=== PATIENT | male | born 1960 | race Caucasian/White ===

== ENCOUNTER 2016-08-08 12:58 | Emergency (ER) | payer OTHER ==
[~2016-08-08] VITALS: Ht 177.8 cm; Wt 82.0 kg
[~2016-08-08 12:58] MED LIST: APIX5TAB PO
[2016-08-08 13:00] VITALS: BP 138/88; PULSE 80; RESP 12; TEMP 98.2; O2SAT 98
[2016-08-08] MEDS ORDERED: ATOR40TA16 PO ×2 (14:03→14:10)
[2016-08-08] MEDS ORDERED: SERT-129 PO ×2 (14:03→14:10)
[2016-08-08] MEDS ORDERED: VALS1TAB63 PO ×2 (14:03→14:10)
--- NOTE | 2016-08-08 14:08 | PD ---
HPI Chief Complaint: Medication Refill Request Time Seen by Provider: 13:59 Travel History International Travel<30 days: No Contact w/Intl Traveler<30days: No Traveled to known affect area: No History of Present Illness HPI 56-year-old white male presents to emergency department requesting refill of his medications. He states that he just moved to [place] from [place] 2 months ago. He has [place] Medicaid. He states that he is unable to get a primary care doctor to refill his medicines. The patient denies any acute medical complaints. He states that he has been to the ER for medication refills in the past. PFS Past Medical History Narrative Medical Valvular heart disease, hypertension, hypercholesterolemia, depression Hx Anticoagulant Therapy: Yes Cardiovascular Problems: Yes (HTN, HEART SX) Tetanus Vaccination: < 5 Years Past Surgical History Narrative Surgical Mitral valve repair Social History Alcohol Use: Yes Tobacco Use: No Allergies-Medications (Allergen,Severity, Reaction): Coded Allergies: Penicillin (Verified Allergy, Mild, 08/08/16) Reported Meds & Prescriptions Reported Meds & Active Scripts Active Eliquis (Apixaban) 5 Mg Tab 5 Mg PO BID Reported Atorvastatin (Atorvastatin Calcium) 40 Mg Tab 40 Mg PO HS Valsartan 40 Mg Tab 40 Mg PO DAILY Sertraline (Sertraline HCl) 100 Mg Tab 100 Mg PO DAILY Review of Systems Except as stated in HPI: all other systems reviewed are Neg Physical Exam Narrative GENERAL: This is a well-nourished, well-developed patient, in no apparent distress. SKIN: No rashes, ecchymoses or lesions. Warm and dry. HEAD: Atraumatic. Normocephalic. EYES: PERRL, EOMI, no discharge or injection. No scleral icterus. EARS: Clear NOSE: Nasal turbinates appear normal. THROAT: Mucosa pink and moist. Airway patent. NECK: Trachea midline. supple, moves head freely. LUNGS: Clear to auscultation. CV: Regular in rhythm. ABDOMEN: Soft nontender. EXT: No clubbing cyanosis or edema. Data Data Last Documented VS Vital Signs Date Time Temp Pulse Resp B/P Pulse Ox O2 Delivery O2 Flow Rate FiO2 08/08/16 13:00 98.2 80 12 138/88 98 Room Air MDM Medical Decision Making Medical Screen Exam Complete: Yes Emergency Medical Condition: Yes Medical Record Reviewed: Yes Differential Diagnosis Differential diagnosis: Hypertension, hypercholesterolemia, valvular heart disease, med refill Narrative Course I had a lengthy discussion with the patient and I have agreed to give him a 1 month supply of medication. 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 Diagnosis Primary Impression: Valvular heart disease Additional Impressions: Hypertension Qualified Code: I15.9 - Secondary hypertension Hypercholesterolemia Depression Qualified Code: F32.9 - Depression, unspecified depression type Medication refill Patient Instructions: General Instructions Additional Instructions: Rest. Medication refill. Contact Medicaid and continued to work on getting a primary care doctor. Return to the ER if any problems Med/Other Pt SpecificInfo: Prescription(s) given Scripts Atorvastatin 40 Mg Tab40 Mg PO HS #30 TAB Ref 0 Prov:Rey Hankins MD 08/08/16 Valsartan 40 Mg Tab40 Mg PO DAILY #30 TAB Ref 0 Prov:Rey Hankins MD 08/08/16 Sertraline 100 Mg Ibl642 Mg PO DAILY #30 TAB Ref 0 Prov:Rey Hankins MD 08/08/16 Apixaban (Eliquis)5 Mg Tab5 Mg PO BID #60 TAB Ref 0 Prov:Rey Hankins MD 08/08/16 Disposition: 01 DISCHARGE HOME Condition: Stable Connor Grace Aug 08, 2016 14:08
[2016-08-08] MEDS ORDERED: APIX5TAB PO (14:10)
[2017-01-16] MEDS ORDERED: VITA100036 PO (15:41)
[2017-01-16] MEDS ORDERED: FERR150C (15:41)
[2017-01-16] MEDS ORDERED: TAMS0.4C4 PO (16:34)
== END 2016-08-08 14:23 | disposition home or self-care (01) ==
LOC: NEPB 12:58
DX: I38 Endocarditis, valve unspecified (principal); F32.9 Major depressive disorder, single episode, unspecified; I10 Essential (primary) hypertension; Z76.0 Encounter for issue of repeat prescription
CPT/HCPCS: 99281

== ENCOUNTER 2016-10-07 17:01 | Emergency (ER) | payer SELFPAY ==
[~2016-10-07] VITALS: Ht 177.8 cm; Wt 82.0 kg
[~2016-10-07 17:01] MED LIST changes: +ATOR40TA16 PO; +SERT-129 PO; +VALS1TAB63 PO
[2016-10-07 17:03] VITALS: BP 131/83; PULSE 84; RESP 15; TEMP 98.1; O2SAT 95
[2016-10-07] MEDS ORDERED: VALS1TAB63 PO (18:29)
[2016-10-07] MEDS ORDERED: APIX5TAB PO (18:29)
[2016-10-07] MEDS ORDERED: ATOR40TA16 PO (18:29)
--- NOTE | 2016-10-07 18:30 | PD ---
HPI Chief Complaint: Medication Refill Request Time Seen by Provider: 18:28 Travel History International Travel<30 days: No Contact w/Intl Traveler<30days: No Traveled to known affect area: No History of Present Illness HPI 56-year-old male presents to the emergency department requesting refills on his medications valsartan, Eloquis, atorvastatin, and sertraline. He ran out of all of his medications yesterday except for the sertraline which she has 2 left. He has a primary care provider but his appointment is not until next Sunday. It is a new primary care provider and his first time seeing them so they will not refill His medications. He denies any emergent medical complaints at this time. He denies chest pain, shortness of breath, abdominal pain, nausea, vomiting, fever, chills, change in urine or stool. Denies suicidal or homicidal ideations. Allergies to penicillin. No other modifying factors or associated signs and symptoms. PFSH Past Medical History Hx Anticoagulant Therapy: Yes (ELIQUIS ) Cardiovascular Problems: Yes (HTN, MITRAL VALVE REPAIR ) Social History Alcohol Use: Yes Tobacco Use: No Allergies-Medications (Allergen,Severity, Reaction): Coded Allergies: Penicillin (Verified Allergy, Mild, 08/08/16) Reported Meds & Prescriptions Reported Meds & Active Scripts Active Atorvastatin (Atorvastatin Calcium) 40 Mg Tab 40 Mg PO HS Valsartan 40 Mg Tab 40 Mg PO DAILY Eliquis (Apixaban) 5 Mg Tab 5 Mg PO BID Sertraline (Sertraline HCl) 100 Mg Tab 100 Mg PO DAILY Review of Systems Except as stated in HPI: all other systems reviewed are Neg Physical Exam Narrative GENERAL: Well-nourished, well-developed male patient, in no acute distress SKIN: Warm and dry. HEAD: Atraumatic. Normocephalic. EYES: Pupils equal and round. No scleral icterus. No injection or drainage. ENT: Mucosa pink and moist. Airway patent. NECK: Trachea midline. CARDIOVASCULAR: Regular rate and rhythm. No murmur appreciated. RESPIRATORY: No accessory muscle use. Clear to auscultation. Breath sounds equal bilaterally. GASTROINTESTINAL: Abdomen soft, non-tender, nondistended. Hepatic and splenic margins not palpable. Bowel sounds are active 4 quadrants. MUSCULOSKELETAL: No obvious deformities. No clubbing. No cyanosis. No edema. NEUROLOGICAL: Awake and alert. Oriented 3. No obvious cranial nerve deficits. Motor grossly within normal limits. Normal speech. PSYCHIATRIC: Appropriate mood and affect; insight and judgment normal. Data Data Last Documented VS Vital Signs Date Time Temp Pulse Resp B/P Pulse Ox O2 Delivery O2 Flow Rate FiO2 10/07/16 17:03 98.1 84 15 131/83 95 MDM Medical Decision Making Medical Screen Exam Complete: Yes Emergency Medical Condition: Yes Medical Record Reviewed: Yes Differential Diagnosis Medication refill, medical clearance, malingering Narrative Course 56-year-old male presents for medication refills. He is no emergent medical complaints. Valsartan, Eloquis, atorvastatin prescriptions provided for home. Patient has primary care provider appointment next Sunday. Patient is medically cleared and stable for discharge. Discussed reasons to return to the emergency department. Instructed patient to follow up with primary care provider. Patient agrees with treatment plan. The patients vital signs are stable and the patient is stable for outpatient follow-up and treatment. Patient discharged home, stable and in no acute distress. Diagnosis Primary Impression: Medication refill Referrals: Primary Care Physician Patient Instructions: General Instructions, Medication Refill, ED Additional Instructions: Follow-up with primary care provider Return to the emergency department immediately with worsening of symptoms Med/Other Pt SpecificInfo: Prescription(s) given Scripts Atorvastatin 40 Mg Tab40 Mg PO HS #30 TAB Ref 0 Prov:Tasha Treadwell 10/07/16 Valsartan 40 Mg Tab40 Mg PO DAILY #30 TAB Ref 0 Prov:Tasha Treadwell 10/07/16 Apixaban (Eliquis)5 Mg Tab5 Mg PO BID #60 TAB Ref 0 Prov:Tasha Treadwell 10/07/16 Disposition: 01 DISCHARGE HOME Condition: Stable Tasha Treadwell Oct 07, 2016 18:30
[2017-01-16] MEDS ORDERED: VITA100036 PO (15:41)
[2017-01-16] MEDS ORDERED: FERR150C (15:41)
[2017-01-16] MEDS ORDERED: TAMS0.4C4 PO (16:34)
== END 2016-10-07 18:38 | disposition home or self-care (01) ==
LOC: NEPB 17:01
DX: I10 Essential (primary) hypertension (principal)
CPT/HCPCS: 99281

== ENCOUNTER 2017-04-28 13:03 | Emergency (ER) | payer OTHER ==
[~2017-04-28 13:03] MED LIST changes: +CIPR500T2 PO; +FERR150C PO; +TAMS0.4C4 PO; +VITA100036 PO
[2017-04-28 13:05] VITALS: BP 126/82; PULSE 82; RESP 20; TEMP 98.8; O2SAT 96
--- NOTE | 2017-04-28 13:24 | PD ---
Physical Exam Date Seen by Provider: Apr 28, 2017 Time Seen by Provider: 13:19 Narrative 57-year-old male comes in with injury to the right elbow. Patient states he hit it with the edge of a coffee table yesterday. Patient now has pain and swelling to the right posterior elbow. Pain is currently 6 out of 10. It is worse with movement and palpation. There is no open wound. Right elbow x-ray is ordered. Vital signs are reviewed. Patient awaiting bed placement. Data Data Last Documented VS Vital Signs Date Time Temp Pulse Resp B/P (MAP) Pulse Ox O2 Delivery O2 Flow Rate FiO2 04/28/17 13:05 98.8 82 20 126/82 (97) 96 Room Air Orders Orders Elbow, Complete (4 Vws) (04/28/17 13:18) [facility] Medical Record Reviewed: Yes Supervised Visit with MONICA: Yes Condition: Stable Maurizio Alejo Apr 28, 2017 13:24
--- NOTE | 2017-04-28 13:48 | RADRPT ---
EXAM DATE/TIME: 04/28/2017 13:30 [place] COMPARISON: No previous studies available for comparison. INDICATIONS : Right elbow pain for 2 days after patient hit elbow on table MEDICAL HISTORY : None. SURGICAL HISTORY : None. ENCOUNTER: Initial ACUITY: 2 days PAIN SCORE: 5/10 LOCATION: Right posterior elbow FINDINGS: Four views of the right elbow demonstrate no fracture or dislocation. No joint effusion is visualized . No radiopaque foreign body is identified. There is posterior elbow soft tissue swelling. CONCLUSION: Posterior elbow soft tissue swelling. No fracture is identified. Aashish Musa MD on April 28, 2017 at 13:45 Board Certified Radiologist. This report was verified electronically.
[2017-04-28] MEDS ORDERED: PRED50 PO (14:54)
[2017-04-28] MEDS ORDERED: TYLETAB34 PO (14:54)
--- NOTE | 2017-04-28 14:54 | PD ---
HPI Chief Complaint: Skin Problem Time Seen by Provider: 14:31 Travel History International Travel<30 days: No Contact w/Intl Traveler<30days: No Traveled to known affect area: No History of Present Illness HPI Patient is a 57-year-old male presenting to emergency for evaluation of right elbow swelling. Patient states that he hit it on a bedside table last night during his sleep. When he woke up this morning it was red, swollen and painful. He denies any fever, chills, nausea or vomiting. He reports the pain is a 7 out of 10 and states it's sore. PFSH Past Medical History Hx Anticoagulant Therapy: Yes (ELIQUIS) Cardiovascular Problems: Yes (MITRAL VALVE SURGERY) Hypertension: Yes Medical other: Yes (l bursa ) Tetanus Vaccination: > 5 Years Past Surgical History Tonsillectomy: Yes Other Surgery: Yes (hemorrhoidectomy) Social History Alcohol Use: Yes Tobacco Use: No Substance Use: No Allergies-Medications (Allergen,Severity, Reaction): Coded Allergies: morphine (Verified Allergy, Severe, BP bottom out, 04/28/17) BP dropped very low penicillin G (Verified Allergy, Mild, 04/28/17) Reported Meds & Prescriptions Reported Meds & Active Scripts Active Tylenol-Codeine #3 (Acetaminophen-Codeine) 300-30 mg Tab 1 Tab PO Q6HR PRN Prednisone 50 Mg Tab 50 Mg PO DAILY 5 Days Tamsulosin (Tamsulosin HCl) 0.4 Mg Cap 0.4 Mg PO HS Atorvastatin (Atorvastatin Calcium) 40 Mg Tab 40 Mg PO HS Valsartan 40 Mg Tab 40 Mg PO DAILY Eliquis (Apixaban) 5 Mg Tab 5 Mg PO BID Sertraline (Sertraline HCl) 100 Mg Tab 100 Mg PO DAILY Reported Ferrex 150 (Polysaccharide Iron Complex) 150 Mg Cap 150 Mg PO DAILY Vitamin D3 (Cholecalciferol) 1,000 Unit Cap 1,000 Units PO DAILY Review of Systems Except as stated in HPI: all other systems reviewed are Neg Musculoskeletal: Positive: Edema, Pain Skin: Positive Change in Pigmentation Physical Exam Narrative GENERAL: Well-developed, well-nourished, alert male. Resting comfortably in no acute distress. SKIN: Warm and dry. Mild erythema, fluctuance and warmth to the right olecranon process. HEAD: Normocephalic. EYES: No scleral icterus. No injection or drainage. NECK: Supple, trachea midline. No JVD or lymphadenopathy. CARDIOVASCULAR: Regular rate and rhythm without murmurs, gallops, or rubs. RESPIRATORY: Breath sounds equal bilaterally. No accessory muscle use. GASTROINTESTINAL: Abdomen soft, non-tender, nondistended. MUSCULOSKELETAL: No cyanosis, or edema. Full range of motion in right elbow, 2 + radial pulse. Brisk less than 3 second capillary refill. BACK: Nontender without obvious deformity. No CVA tenderness. Data Data Last Documented VS Vital Signs Date Time Temp Pulse Resp B/P (MAP) Pulse Ox O2 Delivery O2 Flow Rate FiO2 04/28/17 13:05 98.8 82 20 126/82 (97) 96 Room Air Orders Orders Elbow, Complete (4 Vws) (04/28/17 13:18) Valentin Bandage (04/28/17 14:37) MDM Medical Decision Making Medical Screen Exam Complete: Yes Emergency Medical Condition: Yes Interpretation(s) Last Impressions Elbow X-Ray 04/28/17 1318 Signed Impressions: Service Date/Time: Friday, April 28, 2017 13:30 - CONCLUSION: Posterior elbow soft tissue swelling. No fracture is identified. Aashish Musa MD Vital Signs Date Time Temp Pulse Resp B/P (MAP) Pulse Ox O2 Delivery O2 Flow Rate FiO2 04/28/17 13:05 98.8 82 20 126/82 (97) 96 Room Air Differential Diagnosis Cellulitis versus septic arthritis versus bursitis versus other Narrative Course Patient is a 57-year-old male presenting for a right elbow pain and swelling that started after he hit his elbow during the night. He intact, imaging is negative for acute fracture. Physical exam is most consistent with over cranium bursitis. Patient will be placed in an Valentin wrap, he is encouraged to keep elbow wrapped to maintain swelling. He was advised to follow-up with his primary doctor. He was given strict return precautions. Patient verbalized understanding of discharge instructions. Patient stable for discharge. Diagnosis Primary Impression: Olecranon bursitis, right elbow Referrals: Primary Care Physician 3 days Patient Instructions: Elbow Bursitis (GEN), Elbow Bursitis Exercises (GEN), General Instructions Additional Instructions: Follow-up with your primary doctor Rest, ice, elevate extremity Valentin wrap on for support Take medications as directed Return to emergency department for any new or worsening symptoms Med/Other Pt SpecificInfo: Prescription(s) given Scripts Cephalexin (Keflex) 500 Mg Cap 500 MG PO Q12H for Infection for 7 Days, #14 CAP 0 Refills Prov: Danni Thornton 04/28/17 Acetaminophen-Codeine (Tylenol-Codeine #3) 300-30 mg Tab 1 TAB PO Q6HR Y for PAIN, #10 TAB 0 Refills Prov: Danni Thornton 04/28/17 Prednisone (Prednisone) 50 Mg Tab 50 MG PO DAILY for 5 Days, #5 TAB 0 Refills Prov: Danni Thornton 04/28/17 Disposition: 01 DISCHARGE HOME Condition: Stable Danni Thornton Apr 28, 2017 14:54
[2017-04-28] MEDS ORDERED: CEPH-460 PO (14:56)
[2017-05-08] MEDS ORDERED: TAMS0.4C4 PO (14:54)
== END 2017-04-28 15:10 | disposition home or self-care (01) ==
LOC: NEPD 13:03
DX: M70.21 Olecranon bursitis, right elbow (principal); I10 Essential (primary) hypertension; W22.8XXA Striking against or struck by other objects, initial encounter; Y93.84 Activity, sleeping; Y92.003 Bedroom of unspecified non-institutional (private) residence as the place of occurrence of the external cause; Z79.01 Long term (current) use of anticoagulants
CPT/HCPCS: 73080; 99284

== ENCOUNTER 2018-01-23 06:14 | Emergency (ER) | payer OTHER ==
[~2018-01-23] VITALS: Ht 177.8 cm; Wt 77.0 kg
[~2018-01-23 06:14] MED LIST changes: +CEPH-460 PO; +CHOL10008 PO; -CIPR500T2 PO; +PRED50 PO; +TYLETAB34 PO; -VITA100036 PO
[2018-01-23 06:21] VITALS: BP 139/69; PULSE 92; RESP 17; TEMP 99.2; O2SAT 99
[2018-01-23 07:07] VITALS: BP 116/70; PULSE 69; RESP 18; O2SAT 97
[2018-01-23] MEDS ORDERED: SODIUM CHLORIDE 0.9% FLUSH 10 ML FLUSH IVF PRN (07:30)
[2018-01-23] MEDS ORDERED: ACETAMINOPHEN/HYDROcodone 325 MG/5 MG TAB PO ONE (07:30)
--- NOTE | 2018-01-23 07:32 | PD ---
HPI Chief Complaint: Complaint Time Seen by Provider: 07:11 Travel History International Travel<30 days: No Contact w/Intl Traveler<30days: No Traveled to known affect area: No History of Present Illness HPI Patient presents to the emergency department with right testicular swelling and pain. Patient was seen by his urologist, Dr. Thuan Hoover, FANI Rivas diagnosed with a UTI 2 days ago. Given Bactrim DS 1 tab p.o. twice daily times 10 days. Denies dysuria, hematuria, but reports urinary frequency and yellow penile discharge. Last sexual activity was unprotected two weeks ago. Denies a history of STD or penile lesions. Right testicular swelling is new onset for the patient. He denies fever, chills, nausea, vomiting, and reports right groin pain. PFSH Past Medical History Hx Anticoagulant Therapy: Yes (Eliquis) Anxiety: Yes Depression: Yes Heart Rhythm Problems: Yes Cardiovascular Problems: Yes (Mitral valve repaired) Hypertension: Yes Past Surgical History Cardiac Surgery: Yes (Mitral valve repair) Tonsillectomy: Yes Other Surgery: Yes (hemorrhoidectomy) Social History Alcohol Use: Yes (occaisonally ) Tobacco Use: No Substance Use: No Allergies-Medications (Allergen,Severity, Reaction): Coded Allergies: morphine (Verified Allergy, Severe, BP bottom out, 01/23/18) BP dropped very low penicillin G (Verified Allergy, Mild, 01/23/18) Reported Meds & Prescriptions Reported Meds & Active Scripts Active Doxycycline (Doxycycline (Monohydrate)) 100 Mg Cap 100 Mg PO BID 10 Days Tamsulosin (Tamsulosin HCl) 0.4 Mg Cap 0.4 Mg PO HS Keflex (Cephalexin) 500 Mg Cap 500 Mg PO Q12H 7 Days Prednisone 50 Mg Tab 50 Mg PO DAILY 5 Days Atorvastatin (Atorvastatin Calcium) 40 Mg Tab 40 Mg PO HS Valsartan 40 Mg Tab 40 Mg PO DAILY Eliquis (Apixaban) 5 Mg Tab 5 Mg PO BID Sertraline (Sertraline HCl) 100 Mg Tab 100 Mg PO DAILY Reported Ferrex 150 (Polysaccharide Iron Complex) 150 Mg Cap 150 Mg PO DAILY Vitamin D3 (Cholecalciferol) 1,000 Unit Cap 1,000 Units PO DAILY Review of Systems Except as stated in HPI: all other systems reviewed are Neg Physical Exam Narrative GENERAL: No acute distress SKIN: Focused skin assessment warm/dry. HEAD: Atraumatic. Normocephalic. EYES: Pupils equal and round. No scleral icterus. No injection or drainage. ENT: No nasal bleeding or discharge. Mucous membranes pink and moist. NECK: Trachea midline. No JVD. CARDIOVASCULAR: Regular rate and rhythm. No murmur appreciated. RESPIRATORY: No accessory muscle use. Clear to auscultation. Breath sounds equal bilaterally. GASTROINTESTINAL: Abdomen soft, suprapubic tenderness, nondistended. Hepatic and splenic margins not palpable. MUSCULOSKELETAL: No obvious deformities. No clubbing. No cyanosis. No edema. NEUROLOGICAL: Awake and alert. No obvious cranial nerve deficits. Motor grossly within normal limits. Normal speech. PSYCHIATRIC: Appropriate mood and affect; insight and judgment normal. : No penile discharge, no penile or scrotal lesions, right testicle swollen and tender Data Data Last Documented VS Vital Signs Date Time Temp Pulse Resp B/P (MAP) Pulse Ox O2 Delivery O2 Flow Rate FiO2 01/23/18 07:07 69 18 116/70 (85) 97 Room Air 01/23/18 06:21 99.2 Orders Orders Complete Blood Count With Diff (01/23/18 07:19) Comprehensive Metabolic Panel (01/23/18 07:19) Urinalysis - C+S If Indicated (01/23/18 07:19) Iv Access Insert/Monitor (01/23/18 07:19) Sodium Chloride 0.9% Flush (Ns Flush) (01/23/18 07:30) Us Testicles W Doppler (01/23/18 07:19) Gc And Chlamydia Pcr (01/23/18 07:19) Acetamin-Hydrocod 325-5 Mg ([place] 5-325 (01/23/18 07:30) Ceftriaxone Inj (Rocephin Inj) (01/23/18 09:00) Doxycycline (Vibramycin) (01/23/18 09:00) Ceftriaxone Inj (Rocephin Inj) (01/23/18 09:15) Ed Discharge Order (01/23/18 09:34) Labs Laboratory Tests Test 01/23/18 07:30 01/23/18 07:41 White Blood Count 7.3 TH/MM3 Red Blood Count 4.36 MIL/MM3 Hemoglobin 14.1 GM/DL Hematocrit 41.0 % Mean Corpuscular Volume 93.9 FL Mean Corpuscular Hemoglobin 32.4 PG Mean Corpuscular Hemoglobin Concent 34.5 % Red Cell Distribution Width 13.8 % Platelet Count 206 TH/MM3 Mean Platelet Volume 8.0 FL Neutrophils (%) (Auto) 74.8 % Lymphocytes (%) (Auto) 14.2 % Monocytes (%) (Auto) 9.7 % Eosinophils (%) (Auto) 0.8 % Basophils (%) (Auto) 0.5 % Neutrophils # (Auto) 5.5 TH/MM3 Lymphocytes # (Auto) 1.0 TH/MM3 Monocytes # (Auto) 0.7 TH/MM3 Eosinophils # (Auto) 0.1 TH/MM3 Basophils # (Auto) 0.0 TH/MM3 CBC Comment DIFF FINAL Differential Comment Blood Urea Nitrogen 14 MG/DL Creatinine 1.19 MG/DL Random Glucose 98 MG/DL Total Protein 7.1 GM/DL Albumin 3.5 GM/DL Calcium Level 8.5 MG/DL Alkaline Phosphatase 78 U/L Aspartate Amino Transf (AST/SGOT) 35 U/L Alanine Aminotransferase (ALT/SGPT) 14 U/L Total Bilirubin 0.6 MG/DL Sodium Level 137 MEQ/L Potassium Level 5.0 MEQ/L Chloride Level 104 MEQ/L Carbon Dioxide Level 23.4 MEQ/L Anion Gap 10 MEQ/L Estimat Glomerular Filtration Rate 63 ML/MIN Urine Color YELLOW Urine Turbidity CLEAR Urine pH 7.0 Urine Specific [place] 1.018 Urine Protein NEG mg/dL Urine Glucose (UA) NEG mg/dL Urine Ketones NEG mg/dL Urine Occult Blood NEG Urine Nitrite NEG Urine Bilirubin NEG Urine Urobilinogen 2.0 mg/dL Urine Leukocyte Esterase NEG Urine RBC LESS THAN 1 /hpf Urine WBC 4 /hpf Urine Bacteria RARE /hpf Urine Mucus FEW /lpf Microscopic Urinalysis Comment CULT NOT INDICATED MDM Medical Decision Making Medical Screen Exam Complete: Yes Emergency Medical Condition: Yes Interpretation(s) Labs: Normal WBC count, normal BUN/creatinine, UA negative nitrite and leukocyte esterase Last Impressions Scrotum Ultrasound 01/23/18 8049 Signed Impressions: CONCLUSION: 1. Findings consistent with mild right-sided epididymitis. 2. Moderate to large complex right hydrocele. 3. Small right epididymal cyst. Differential Diagnosis Epididymitis, orchitis, testicle torsion, UTI, STI Narrative Course Patient recently diagnosed with urinary tract infection and presents with right testicular pain and swelling. Patient placed on monitoring tech, IV access obtained, ultrasound/lab/pain meds ordered. Patient given 1 [place] 5/325 mg p.o. Physician Communication Physician Communication [id number]: Dr. Thuan Hoover, patient's urologist paged: Advised doxy 100mg po BID x 10 days, have patient continue bactrim, Rocephin 1g Diagnosis Primary Impression: Epididymitis Patient Instructions: Epididymitis (GEN), General Instructions Additional Instructions: 1. Meds as directed. 2. Follow-up with urologist in 24-48 hours. 3. Return to the ER immediately for fever, vomiting, inability to urinate, increased pain swelling and testicular area, or for any new/worrisome/worsening symptoms. 4. Continue antibiotic given by Dr. Hoover (bactrim) Med/Other Pt SpecificInfo: Prescription(s) given Scripts Doxycycline (Monohydrate) (Doxycycline) 100 Mg Cap 100 MG PO BID for 10 Days, #20 Prov: Cristina Mcclain MD 01/23/18 Disposition: 01 DISCHARGE HOME Condition: Stable Cristina Mcclain MD Jan 23, 2018 07:32
[2018-01-23 07:48] LABS: AUTOMATED NEUTROPHIL # 5.5 TH/MM3 (1.8-7.7); BASOPHIL % 0.5 % (0.0-2.0); EOSINOPHIL # 0.1 TH/MM3 (0-0.4); EOSINOPHIL % 0.8 % (0.0-4.0); HEMOGLOBIN 14.1 GM/DL (13.0-17.0); LYMPH % 14.2 % (9.0-44.0); MEAN CELL VOLUME 93.9 FL (80.0-100.0); MEAN CORPUSCULAR HEMOGLOBIN 32.4 PG (27.0-34.0); MEAN CORPUSCULAR HGB CONC 34.5 % (32.0-36.0); MONO % 9.7 % (0.0-8.0); MONOCYTE # 0.7 TH/MM3 (0-0.9); NEUT % 74.8 % (16.0-70.0); PLATELET COUNT 206 TH/MM3 (150-450); RED BLOOD COUNT 4.36 MIL/MM3 (4.50-5.90); RED CELL DISTRIBUTION WIDTH 13.8 % (11.6-17.2); WHITE BLOOD COUNT 7.3 TH/MM3 (4.0-11.0)
[2018-01-23 08:09] LABS: BACTERIA, URINE RARE /hpf; BILIRUBIN, URINE NEG (NEG); BLOOD, URINE NEG (NEG); GLUCOSE,URINE NEG (NEG); KETONE, URINE NEG (NEG); MUCUS URINE FEW /lpf (OCC); NITRITE,URINE NEG (NEG); URINE COLOR YELLOW (YELLW/STRAW); URINE LEUKOCYTE ESTERASE NEG (NEG)
[2018-01-23 08:33] LABS: ALBUMIN 3.5 GM/DL (3.4-5.0); ALKALINE PHOSPHATASE 78 U/L (45-117); ALT (GPT) 14 U/L (12-78); BICARBONATE 23.4 MEQ/L (21.0-32.0); BLOOD UREA NITROGEN 14 MG/DL (7-18); CALCIUM 8.5 MG/DL (8.5-10.1); CREATININE 1.19 MG/DL (0.60-1.30); GLOMERULAR FILTRATION RATE 63 ML/MIN (>89); GLUCOSE,RANDOM 98 MG/DL (74-106); TOTAL BILIRUBIN ADULT 0.6 MG/DL (0.2-1.0); TOTAL PROTEIN 7.1 GM/DL (6.4-8.2)
[2018-01-23 08:34] LABS: AST (GOT) 35 U/L (15-37)
[2018-01-23 08:35] LABS: SODIUM (NA) 137 MEQ/L (136-145)
[2018-01-23 08:36] LABS: CHLORIDE 104 MEQ/L (98-107)
--- NOTE | 2018-01-23 08:47 | RADRPT ---
EXAM DATE: 01/23/2018 8:23 AM EDT AGE/SEX: 57 years / Male INDICATIONS: Testicular pain. CLINICAL DATA: This is the patient's initial encounter. Patient reports that signs and symptoms have been present for 1 week and indicates a pain score of 10/10. MEDICAL/SURGICAL HISTORY: Hypertension. Angina. Anticoagulant therapy, eliquis. Atrial fibrilla tion. Asthma. Irritable bowel syndrome. Tonsillectomy. Mitral valve replacement. Spinal surgery. Hem orrhoidectomy. COMPARISON: No prior exams available for comparison. MEASUREMENTS: Right Testicle:__4.4 x 2.9 x 2.7 cm Left Testicle:__4.6 x 2.7 x 2.2 cm FINDINGS: RIGHT: Testicle: Homogeneous echotexture without intra or extratesticular mass. Blood flow is symmetric and within normal limits. Epididymis: Enlarged with mild increased vascularity. Small 3 x 3 x 3 mm cyst. Hydrocele: Moderate-large complex hydrocele present. Varicocele: No evidence of varicocele. LEFT: Testicle: Homogeneous echotexture without intra or extratesticular mass. Blood flow is symmetric and within normal limits. Epididymis: Within normal limits. Hydrocele: No hydrocele. Varicocele: No evidence of varicocele. Scrotum: Within normal limits. CONCLUSION: 1. Findings consistent with mild right-sided epididymitis. 2. Moderate to large complex right hydrocele. 3. Small right epididymal cyst. Electronically signed by: Nahun Sage MD 01/23/2018 8:46 AM EDT
[2018-01-23] MEDS ORDERED: cefTRIAXone 250 MG VIAL IM ONE (09:00)
[2018-01-23] MEDS ORDERED: DOXYCYCLINE HYCLATE 100 MG CAP PO ONE (09:00)
[2018-01-23] MEDS ORDERED: DOXY1CAP91 PO (09:05)
[2018-01-23] MEDS ORDERED: cefTRIAXone INJ 1,000 MG in SODIUM CHLORIDE 0.9% INJ 100 ML IV ONE (09:15)
== END 2018-01-23 09:55 | disposition home or self-care (01) ==
LOC: NEPE 06:14
DX: N45.1 Epididymitis (principal); N39.0 Urinary tract infection, site not specified; N43.3 Hydrocele, unspecified; F41.9 Anxiety disorder, unspecified; F32.9 Major depressive disorder, single episode, unspecified; I10 Essential (primary) hypertension; Z79.01 Long term (current) use of anticoagulants; I48.91 Unspecified atrial fibrillation
CPT/HCPCS: 76870; 80053; 81001; 85025; 87491; 87591; 93975; 96365; 99284; J0696